=== PATIENT | male | born 1945 | race Caucasian/White ===

== ENCOUNTER 2018-04-20 13:40 | Inpatient (IN) | payer OTHER ==
[~2018-04-20] VITALS: Ht 165.1 cm; Wt 60.8 kg
--- NOTE | ~2018-04-20 | PLAN ---
[facility] [place] [address] REHAB UNIT PLAN OF CARE Name: ALEJANDRO RICH Room #: 509-P [facility] IN M.R.#: [id number] Admission: 04/20/18 Attend Phys: Issa Pedro MD Discharge: 05/02/18 Date of : 41 Report #: [id number] THIS REPORT FOR: //name// CC: Issa Pedro [facility] DATE OF SERVICE: 04/21/2018 HISTORY OF PRESENT ILLNESS: The patient has had some loose stools overnight. He is being checked for C. diff. Last recorded temperature 97.5, pulse 93, respirations 18, blood pressure 135/84. Transfers have been min assist with gait 15 feet with a front-wheeled walker. He has gone up 4 stairs min assist. ASSESSMENT: 1. Left basal ganglia infarct. 2. Right dominant hemiparesis. 3. Mild dysarthria. 4. Hypertension. 5. Hyperlipidemia. 6. Coronary artery disease with prior coronary artery bypass grafting. 7. Rheumatoid arthritis. PLAN: The overall plan of care is based on the preadmission screen, post-admission physician evaluation and information garnered from therapy assessments. 1. Estimated length of stay is probably at least 10 days to 2 weeks. 2. Medical prognosis is reasonably good. 3. Anticipated interventions includes the interdisciplinary acute inpatient rehabilitation program with the goal of maximizing the patient's functional independence, so that he can hopefully return back to his prior living situation. 4. Anticipated functional outcomes would be for the patient to improve as far as his mobility to hopefully reaching walker independence and eventually independence with a cane, which he was premorbidly. Goals to be independent with mobility and ADLs as well as communication issues and swallowing. We are having speech therapy, check out both communication as well as swallowing. 5. Discharge destination is back to the home setting where he lives in a multigenerational household. 6. Expected therapy by discipline includes PT, OT and speech 1 hour per day each five days a week throughout the duration of the acute inpatient rehabilitation program. <ELECTRONICALLY SIGNED> By: Issa Pedro MD 05/03/18 1213 [id number] sIsa Pedro MD /nt
--- NOTE | ~2018-04-20 | HC ---
[facility] [place] [address] CONSULTATION Name: ALEJANDRO RICH Room #: 509-P ADM IN M.R.#: [id number] Admission: 04/20/18 Attend Phys: Issa Pedro MD Discharge: Date of : 41 Report #: [id number] THIS REPORT FOR: //name// CC: Issa Pedro [facility] DATE OF SERVICE: 04/22/2018 ATTENDING PHYSICIAN: Issa Pedro MD. DINING ROOM SERVER: Tan Benavides, PhD. CLINICAL PRESENTATION: The patient is a 72-year-old male admitted to [facility] Unit for comprehensive inpatient rehabilitation program to improve functional mobility and activities of daily living and self-care secondary to deficits from a cerebrovascular accident. The patient was with his son and son-in-law when he began to show symptoms of right hemiparesis and slurred speech. He was then brought into the hospital and diagnosed with a left basal ganglia infarction along with findings of a right ICA petrous portion aneurysm that is not felt to be surgical. He was admitted to the rehabilitation unit for treatment subsequent to CVA related to the left basal ganglia infarction. Neuropsychological consultation was requested to provide assistance in the assessment of cognitive and emotional status and to provide recommendations and services. Prior to this most recent admission, he is reported to have been living with his daughter and son-in-law. The patient is reported by his daughter to be a hoarder. His room is described as severely unkempt. His house is also reported to have required multiple repairs in order for it to be properly put up for sale, but currently is uninhabitable. His daughter also indicates that he is unable to see out of one eye and has been having difficulty with driving. Son-in-law also states he will use both feet when driving and difficulty with vision provides interference with his ability to maintain continued safety. He has two children. 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 The patient is . He is a former alcoholic. He has had no alcohol for over 25 years. TECHNIQUES UTILIZED: Clinical interview, review of medical records, staff consultation and behavioral observation, family interview -- daughter and son-in-law and mini mental status exam 2 standard version. EXAMINATION FINDINGS: The patient was alert and cooperative with the assessment. He accurately described the reason for his admission. There is no evidence of aphasia. Thoughts are logical and goal oriented. There is no evidence of thought disorder. He does not report auditory or visual hallucinations. Intermittent difficulty with word finding and memory are noted. [facility] [address] [place] [address] CONSULTATION Name: ALEJANDRO RICH Room #: 509-P [facility] IN M.R.#: [id number] Admission: 04/20/18 Attend Phys: Issa Pedro MD Discharge: Date of : 41 Report #: [id number] He also has difficulty with sleep and appetite. He does not report subjective depression or anxiety, but primarily fatigue. His daughter indicates concern that he might be depressed. His performance on the MMSE 2 brief version is in the mild range of impairment with a raw score of 13 and a T-score of 36. The patient was 4/[address] and 1/3 for immediate recall of 3 items after a brief time delay and distraction. Initial registration was 3/3 and orientation to time was 5/5. His performance on the MMSE 2 standard version was in the mild to moderate range of impairment with a raw score of 24 and a T score of 38. The patient was 2/5 for serial sevens, naming, repetition, auditory comprehension and ability to read and follow single command were within normal limits. The patient is presenting with variability in concentration along with deficits in immediate recall. His family thinks that he might be depressed, although the patient does not subjectively report the symptoms. DIAGNOSTIC IMPRESSION: 1. 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 2. Unspecified anxiety disorder. RECOMMENDATIONS: The patient will benefit from increased structure and supervision upon return home. Driving should be discontinued until a more formal assessment can be completed. At this time, the patient is described as having difficulty in managing safely his medications without supervision and structure. Assistance with medication, nutrition and compliance issues will be necessary for him to maintain safety. Thank you very much for allowing me to provide the consultation on this patient. By: [id number] Tan Benavides, PhD /nt
--- NOTE | ~2018-04-20 | H ---
[facility] [place] [address] HISTORY AND PHYSICAL Name: ALEJANDRO RICH Room #: 509-P [facility] IN M.R.#: [id number] Admission: 04/20/18 Attend Phys: Issa Pedro MD Discharge: 05/02/18 Date of : 41 Report #: [id number] THIS REPORT FOR: //name// CC: Issa Pedro [facility] DATE OF SERVICE: 04/20/2018 HISTORY AND PHYSICAL/POST-ADMISSION PHYSICIAN EVALUATION HISTORY OF PRESENT ILLNESS: The patient is a 72-year-old white male with a prior history of coronary artery disease, rheumatoid arthritis, and hypertension, admitted to the [facility] on 04/16/2018. He was noted to have right-sided weakness and slurred speech. He underwent workup, which revealed a left basal ganglia infarct on imaging with CT angio showing findings of right ICA petrous portion aneurysm. This was not felt to be surgical in nature. He was seen by the [facility] at [facility] and was felt to be a candidate for acute in-hospital inpatient rehabilitation. He has had a significant functional decline from his premorbid status. PAST MEDICAL HISTORY: As noted above, includes coronary artery disease status post CABG, rheumatoid arthritis, hypertension, and hyperlipidemia. ALLERGIES: MORPHINE, SULFA DRUGS, AND PARAFON FORTE. MEDICATIONS: Please see the full medication listing. This includes vitamins, herbals, and supplements. SOCIAL HISTORY: Lives in a multigenerational household with his daughter, son-in-law, as well as their children and grandchildren. Prior to admission, he was independent with all ADLs, but was using a cane for ambulation at times for falls. REVIEW OF SYSTEMS: No complaints of chest pain, shortness of breath, abdominal discomfort. Complains of the right-sided weakness. Complains that he fatigues fairly quickly. No focal extremity pain complaints. FAMILY HISTORY: Noncontributory. PHYSICAL EXAMINATION: GENERAL: He is a pleasant 72-year-old white male, slender build, in no obvious distress. VITAL SIGNS: Currently being obtained. He is 5 feet 5 inches, weighs 134 pounds. HEENT: Appeared to be benign. NEUROLOGIC: Faces appeared to be symmetric. EOMs are full. No obvious visual [facility] [address] [place] [address] HISTORY AND PHYSICAL Name: ALEJANDRO RICH Room #: 509-P [facility] IN M.R.#: [id number] Admission: 04/20/18 Attend Phys: Issa Pedro MD Discharge: 05/02/18 Date of : 41 Report #: [id number] field neglect to confrontation. He might have some slight slurring of speech. CHEST: Sounded clear to auscultation. CARDIOVASCULAR: Sounded regular rate and rhythm. ABDOMEN: Bowel sounds positive, nontender. GENITOURINARY AND RECTAL: Deferred. EXTREMITIES: He has functional range of motion of both upper extremities. He does have some decreased coordination of that right upper extremity with decreased [id number] some clumsiness. Strength is a grade 3+ to 4-/5, left upper extremity is more of a grade 4 to 4-/5, right lower extremity reveals some decreased strength grade 4- to 3+/5. Left lower extremity is more of a grade 4/5. Negative Loyd's. No clonus at the ankle. Sensory examination appeared reasonably intact to simultaneous stimulation both upper and lower extremities. He has been needing assist with basic functional mobility skills and physical therapy noted that he was min-to-mod assist with short distance walker ambulation with some extensor stiffness of that right lower extremity during gait. ASSESSMENT: A 72-year-old white male with the following problem list: 1. Left basal ganglia infarct. 2. Right dominant hemiparesis. 3. Mild dysarthria. 4. Hypertension. 5. Hyperlipidemia. 6. Coronary artery disease with prior coronary artery bypass grafting. 7. Rheumatoid arthritis. He does have some chronic rheumatoid changes of his major joints. PLAN: The patient is admitted for acute in-hospital inpatient rehabilitation. From a postadmission physician evaluation perspective, there are no relevant changes since the preadmission screening. Please see the above review of prior and current medical and functional conditions and comorbidities. Please see the patient's previous and current functional status. As far as risk of complications, the patient has multiple medical comorbidities as noted above. Initial plan of care involves the interdisciplinary acute inpatient rehabilitation program with the goal of maximizing his functional independence, so that he can hopefully return back to his prior living situation. Measurable functional goals would be for the patient to become modified independent with transfers, mobility, ADLs, communication, cognition, so that he can return back to the home setting. We have speech therapy evaluate his swallow as well. He was admitted on a heart healthy diet. His prognosis is reasonably good with estimated length of stay probably 10 days to 2 weeks pending progress. Potential barriers would include his multiple medical comorbidities and decreased functional status. The patient meets diagnostic criteria for an acute in-hospital inpatient rehabilitation stay. He meets the medical necessity criteria. He is post-CVA [facility] [address] [place] [address] HISTORY AND PHYSICAL Name: ALEJANDRO RICH Room #: 509-P DIS IN M.R.#: [id number] Admission: 04/20/18 Attend Phys: Issa Pedro MD Discharge: 05/02/18 Date of : 41 Report #: [id number] and will be monitored regarding his multiple medical comorbidities as noted above. He does have the tolerance for an acute rehab therapy program and has appropriate discharge goals back to the home setting. <ELECTRONICALLY SIGNED> By: Issa Pedro MD 05/03/18 1213 [id number] Issa Pedro MD /[facility]
[2018-04-20] MEDS ORDERED: NORVASC2.5 MG PO (14:38)
[2018-04-20] MEDS ORDERED: TYLENOL325 MG PO (14:38)
[2018-04-20] MEDS ORDERED: LIPITOR80 MG PO (14:39)
[2018-04-20] MEDS ORDERED: ASPIR 8181 MG PO (14:39)
[2018-04-20] MEDS ORDERED: CALCIUM500 MG PO (14:40)
[2018-04-20] MEDS ORDERED: VITAMIN D1000 UNI1 PO (14:41)
[2018-04-20] MEDS ORDERED: ENBREL50 MG/1 ML SUBQ (14:42)
[2018-04-20] MEDS ORDERED: FOLIC ACID1 MG PO (14:45)
[2018-04-20] MEDS ORDERED: LEFLUNOMIDE20 MG PO (14:46)
[2018-04-20] MEDS ORDERED: LIDOCAINE PAIN1 EACH TRANSDERM (14:48)
[2018-04-20] MEDS ORDERED: METHOTREXATE 22.5 MG PO (14:50)
[2018-04-20] MEDS ORDERED: LOPRESSOR25 PO (14:51)
[2018-04-20 18:15] LABS: ABSOLUTE NEUTROPHILS 4.2 thou/uL (1.4-8.2); BASOPHILS 1.2 % (0.0-2.0); EOSINOPHILS 5.2 % (0.0-3.0); HEMATOCRIT 42.6 % (42.0-52.0); HEMOGLOBIN 14.3 gm/dL (14.0-18.0); LYMPHOCYTES 15.6 % (24.0-44.0); MCH 28.2 pg (26.0-34.0); MCHC 33.5 g/dL (28.0-37.0); MCV 84.2 fL (80.0-100.0); MONOCYTES 9.6 % (1.0-8.0); PLATELET COUNT 125 thou/uL (150-400); POLYS 68.4 % (36.0-66.0); RBC 5.06 mil/uL (4.50-6.00); WBC 6.1 thou/uL (4.0-11.0)
[2018-04-20 18:29] LABS: ALBUMIN 3.4 g/dL (3.4-5.0); CALCIUM 9.3 mg/dL (8.5-10.1); CREATININE 0.8 mg/dL (0.7-1.3); MAGNESIUM 1.7 mg/dL (1.8-2.4); TOTAL BILIRUBIN 0.2 mg/dL (<0.1-1.0); TOTAL PROTEIN 7.3 g/dL (6.4-8.2)
[2018-04-20 19:02] LABS: ANISOCYTOSIS 1+; LARGE PLATELETS RARE
[2018-04-20 20:50] VITALS: BP 135/84
[2018-04-21 07:00] VITALS: BP 137/79
[2018-04-21 11:07] LABS: HEMATOCRIT 42.1 % (42.0-52.0); MCH 28.3 pg (26.0-34.0); MCHC 33.4 g/dL (28.0-37.0); MCV 84.9 fL (80.0-100.0); RBC 4.96 mil/uL (4.50-6.00); RDW 17.9 % (10.5-14.5); WBC 5.5 thou/uL (4.0-11.0)
[2018-04-21 11:18] LABS: CALCIUM 9.4 mg/dL (8.5-10.1); POTASSIUM 3.9 mmol/L (3.5-5.1)
[2018-04-21 20:15] VITALS: BP 150/96
[2018-04-22 08:20] VITALS: BP 122/70
[2018-04-22 20:02] VITALS: BP 158/98
[2018-04-23 07:30] VITALS: BP 130/87
[2018-04-23 20:10] VITALS: BP 127/70
[2018-04-24 07:38] VITALS: BP 158/91
[2018-04-24 19:20] VITALS: BP 148/91
[2018-04-25 04:31] LABS: HEMATOCRIT 40.6 % (42.0-52.0); HEMOGLOBIN 13.2 gm/dL (14.0-18.0); MCH 27.5 pg (26.0-34.0); MCHC 32.5 g/dL (28.0-37.0); MCV 84.8 fL (80.0-100.0); PLATELET COUNT 124 thou/uL (150-400); RBC 4.79 mil/uL (4.50-6.00); RDW 17.7 % (10.5-14.5); WBC 5.8 thou/uL (4.0-11.0)
[2018-04-25 04:39] LABS: CALCIUM 8.5 mg/dL (8.5-10.1); CREATININE 0.9 mg/dL (0.7-1.3); MAGNESIUM 1.9 mg/dL (1.8-2.4); POTASSIUM 4.1 mmol/L (3.5-5.1)
[2018-04-25 05:19] LABS: ABSOLUTE NEUTROPHILS 3.1 thou/uL (1.4-8.2); LARGE PLATELETS SEVERAL
[2018-04-25 05:20] LABS: ANISOCYTOSIS SLIGHT
[2018-04-25 08:00] VITALS: BP 126/86
[2018-04-25 19:40] VITALS: BP 143/41
[2018-04-25 20:38] LABS: URINE BILIRUBIN NEGATIVE (Negative); URINE BLOOD NEGATIVE (Negative); URINE CLARITY CLEAR; URINE COLOR YELLOW; URINE GLUCOSE-RANDOM* NEGATIVE (Negative); URINE KETONES 1+ (Negative); URINE LEUKOCYTES-REFLEX NEGATIVE (Negative); URINE NITRITE-REFLEX NEGATIVE (Negative); URINE PROTEIN (DIPSTICK) NEGATIVE (Negative); URINE SPECIFIC GRAVITY 1.025 (1.005-1.035); URINE UROBILINOGEN 0.2 E.U./dl (0.2-1.0)
[2018-04-25 21:01] VITALS: BP 139/83
[2018-04-26 08:49] VITALS: BP 140/88
[2018-04-26 19:45] VITALS: BP 173/97
[2018-04-27 08:06] VITALS: BP 131/82
[2018-04-27 19:45] VITALS: BP 146/84
[2018-04-28 07:30] VITALS: BP 137/92
[2018-04-28 19:32] VITALS: BP 143/93
[2018-04-29 06:09] LABS: CALCIUM 8.7 mg/dL (8.5-10.1); CREATININE 0.9 mg/dL (0.7-1.3)
[2018-04-29 07:11] VITALS: BP 120/78
[2018-04-30 07:59] VITALS: BP 148/95
[2018-04-30 20:00] VITALS: BP 145/90
[2018-05-01 08:24] VITALS: BP 136/84
[2018-05-01 15:50] VITALS: BP 136/84
[2018-05-01 19:40] VITALS: BP 155/96
[2018-05-02 08:15] VITALS: BP 132/81
[2018-05-02] MEDS ORDERED: HYDROCORTISONE30 G9 TOP (08:15)
[2018-05-02] MEDS ORDERED: ZYRTEC10 MG PO (08:15)
[2018-05-02] MEDS ORDERED: PROTONIX 20 MG20 M1 PO (08:15)
[2018-05-02] MEDS ORDERED: ACIDOPHILUS1 EAC4 PO (08:15)
[2018-05-02] MEDS ORDERED: FLONASE 0.05%50 MCG NASAL (08:15)
[2018-05-02] MEDS ORDERED: OXYBUTYNIN 5 MG5 M2 PO (08:15)
[2018-05-02 10:20] VITALS: BP 136/84
[2018-05-02 10:38] VITALS: BP 136/84
[2018-05-02 11:20] VITALS: BP 136/84
[2018-05-02 11:38] VITALS: BP 136/84
[2018-05-02 12:22] VITALS: BP 136/84
== END 2018-05-02 12:00 | disposition home health service (06) | DRG 65 ==
PROVIDERS: Family Medicine; Nurse Practitioner; Nurse Practitioner Family
DX: I63.89 Other cerebral infarction (principal); A04.72 Enterocolitis due to Clostridium difficile, not specified as recurrent; G81.91 Hemiplegia, unspecified affecting right dominant side; I10 Essential (primary) hypertension; I67.1 Cerebral aneurysm, nonruptured; E78.5 Hyperlipidemia, unspecified; F41.9 Anxiety disorder, unspecified; G31.84 Mild cognitive impairment of uncertain or unknown etiology; R53.1 Weakness; R47.81 Slurred speech; R39.15 Urgency of urination; D69.6 Thrombocytopenia, unspecified; J30.2 Other seasonal allergic rhinitis; I25.10 Atherosclerotic heart disease of native coronary artery without angina pectoris; R47.1 Dysarthria and anarthria; M06.9 Rheumatoid arthritis, unspecified; Z95.5 Presence of coronary angioplasty implant and graft; Z95.1 Presence of aortocoronary bypass graft; Z79.899 Other long term (current) drug therapy; Z88.2 Allergy status to sulfonamides; Z88.5 Allergy status to narcotic agent; Z88.8 Allergy status to other drugs, medicaments and biological substances
CPT/HCPCS: 10112